=== PATIENT | female | born 1990 | race Caucasian/White ===

== ENCOUNTER 2018-12-30 01:05 | Emergency (ER) | payer OTHER ==
[2018-12-30] MEDS ORDERED: NYSTATIN/DEXAMETH/DIPHEN SUSP 120 ML PO ONE ×2 (01:49→02:13)
--- NOTE | 2018-12-30 01:53 | ER Document Report ---
HPI - HPI Patient complains to provider of: L ear pain, sore throat Time Seen by Provider: 12/30/18 01:29 Pain Level: 2 Context: Very pleasant 28-year-old female with no past medical history presents to the emergency department with left ear pain, sore throat, sore gums, headache for the last 2 days. She states this started with earache and progressed to a sore throat. She complains of pain with swallowing, redness in her throat, left ear pain that is sharp in nature, and headache that is not relieved with Excedrin or Tylenol. She states she had a fever earlier but then took Tylenol and went away. She denies chills, nausea, vomiting, diarrhea, urinary symptoms, cough - CONSTITUTIONAL Constitutional: REPORTS: Fever, Chills - EENT EENT: REPORTS: Sore Throat, Ear Pain - NEURO Neurology: REPORTS: Headache - REPRODUCTIVE Reproductive: DENIES: : Past Medical History - Social History Smoking Status: Never Smoker Chew tobacco use (# tins/day): No Frequency of alcohol use: None Drug Abuse: None Family History: None Patient has suicidal ideation: No Patient has homicidal ideation: No Renal/ Medical History: Denies: Hx Peritoneal Dialysis Vertical Provider Document - CONSTITUTIONAL Notes: PHYSICAL EXAMINATION: Reviewed vital signs and charting by RN GENERAL: Alert, interacts well. No acute distress. HEAD: Normocephalic, atraumatic. EYES: Pupils equal, round. Extraocular movements intact. ENT: Oral mucosa moist, tongue midline. Uvula midline, 2+ tonsillar hypertrophy with erythema and exudate, oropharynx erythematous. NECK: Full range of motion. Supple. Trachea midline. Cervical lymphadenopathy LUNGS: Clear to auscultation bilaterally, no wheezes, rales, or rhonchi. No respiratory distress. HEART: Regular rate and rhythm. No murmur PSYCH: Normal affect, normal mood. SKIN: Warm, dry, normal turgor. No rashes or lesions noted. - INFECTION CONTROL TRAVEL OUTSIDE OF THE [place] IN LAST 30 DAYS: No Course - Re-evaluation Re-evalutation: 12/30/18 01:52 Rapid strep ordered, Magic mouthwash ordered. - Vital Signs Vital signs: Temp Pulse Resp BP Pulse Ox 98.5 F 79 16 119/84 100 12/30/18 01:13 12/30/18 01:13 12/30/18 01:13 12/30/18 01:13 12/30/18 01:13 Discharge - Discharge Clinical Impression: Ear pain, left Pharyngitis Qualifiers: Pharyngitis/tonsillitis etiology: unspecified etiology Qualified Code(s): J02.9 - Acute pharyngitis, unspecified Condition: Good Disposition: HOME, SELF-CARE Additional Instructions: Your strep test is negative. Your symptoms are likely due to an viral infection and will resolve in the next 1-2 weeks. You have also been given a dose of steroids to help with your throat discomfort. Please continue to take ibuprofen 600 mg every 6 hours or Tylenol 1000 mg every 6 hours as needed for throat discomfort. You can also gargle with salt water. Continue to drink plenty of fluids. Follow-up with your primary care doctor in the next several days. Return if you become unable to swallow, have difficulty breathing, pass out, have persistent vomiting that prevents you from being able to tolerate fluids, or have any other symptoms that are concerning to you. Referrals: WOODY PERALTA MD [Primary Care Provider] - Follow up as needed
[2018-12-30 03:34] VITALS: BP 115/84
== END 2018-12-30 03:25 | disposition home or self-care (01) ==
LOC: ER 01:05
DX: H92.02 Otalgia, left ear (principal); J02.9 Acute pharyngitis, unspecified; K08.89 Other specified disorders of teeth and supporting structures; R51 Headache
CPT/HCPCS: 99283; 87070; 87880; J3490